=== PATIENT | male | born 1945 | race Hispanic/Latino ===

== ENCOUNTER → 2019-08-07 | Outpatient (CLI) | payer OTHER, MEDICARE ==
--- NOTE | 2019-08-07 12:26 | Diagnostic Imaging Report ---
EXAM: Renal Ultrasound INDICATION: ^CHRONIC KIDNEY DSIEASE STAGE III COMPARISON: None TECHNIQUE: Transverse and longitudinal images of the kidneys and bladder were obtained. FINDINGS: Right Kidney: Length: 10.9 cm Appearance: Normal echogenicity. Collecting system: No hydronephrosis Stones: None Cyst/Mass: Multiple anechoic cysts, the largest of which measures up to 2.4 x 2.4 x 2.1 cm at the lower pole with thin internal septation. The remaining cysts are simple. Left Kidney: Length: 10.5 cm Appearance: Normal echogenicity. Collecting system: No hydronephrosis Stones: Mid and lower pole 4 mm echogenic structures with twinkle artifact. Cyst/Mass: Mid pole simple cysts measure up to 3.7 and 2.1 cm. Bladder: Bilateral ureteral jets visualized. Prevoid volume estimate of 56.2 cc. Postvoid volume estimate of 15.6 cc. Prostate not visualized due to overlying bowel gas. IMPRESSION: Multiple bilateral renal cysts as above. The largest on the right kidney measures 2.4 x 2.4 x 2.1 cm and contains a thin internal septation (Bosniak II). The remaining cysts are simple. 4 mm left midpole and lower pole nonobstructive renal calculi. Signed by: Roe Conti MD on 08/07/2019 12:22 PM
== END ==
LOC: US 10:50
PROVIDERS: ATTEND Internal Medicine Nephrology
DX: N18.3 Chronic kidney disease, stage 3 (moderate) (principal)
CPT/HCPCS: 76770; 76857

== ENCOUNTER → 2021-02-11 | Outpatient (CLI) | payer MEDICARE | LOC: US 09:52 | PROVIDERS: ATTEND Internal Medicine Nephrology | DX: N18.30 Chronic kidney disease, stage 3 unspecified (principal); N28.1 Cyst of kidney, acquired | CPT/HCPCS: 76770; 76857 ==

== ENCOUNTER → 2021-04-03 | Outpatient (CLI) | payer MEDICARE ==
[~2021-04-03] MED LIST: GADOBENATE DIMEGLUMINE 1 ML IV ONE; SODIUM CHLORIDE 0.9% 50ML 50 ML ONE
== END ==
LOC: MRI 08:46
PROVIDERS: ATTEND Internal Medicine Nephrology
DX: N28.89 Other specified disorders of kidney and ureter (principal); N18.30 Chronic kidney disease, stage 3 unspecified; N28.1 Cyst of kidney, acquired
CPT/HCPCS: 74183; A9577

== ENCOUNTER → 2022-04-26 | Outpatient (CLI) | payer MEDICARE ==
[~2022-04-26] MED LIST changes: +ALLOPURINOL100 MG PO; +ARICEPT5 MG PO; +ASPIRIN81 MG PO; +CEFDINIR300 MG PO; +FUROSEMIDE40 MG PO; -GADOBENATE DIMEGLUMINE 1 ML IV ONE; +GLIPIZIDE5 MG PO; +LISINOPRIL-HCT1 EAC2; +NEURONTIN300 MG PO; +OMEPRAZOLE40 MG PO; +SIMVASTATIN20 MG PO; -SODIUM CHLORIDE 0.9% 50ML 50 ML ONE; +VITAMIN D31 GM
[2022-04-26 09:26] LABS: BASOPHILS % 0.5 % (0.0-1.0); EOSINOPHILS # (AUTO) 0.2 (0.0-0.4); HEMATOCRIT 42.8 % (38.2-49.6); HEMOGLOBIN 14.1 g/dL (14.0-18.0); LYMPHOCYTES # (AUTO) 1.6 (1.0-3.2); LYMPHOCYTES % 21.5 % (18.0-39.1); MEAN CORPUSCULAR HEMOGLOBIN 32.3 pg (28-32); MEAN CORPUSCULAR HGB CONC 32.9 g/dL (31-35); MEAN CORPUSCULAR VOLUME 98.2 fL (81-99); MONOCYTES # (AUTO) 0.6 (0.2-0.8); MONOCYTES % 7.4 % (4.4-11.3); NEUTROPHILS # (AUTO) 5.1 (2.1-6.9); NEUTROPHILS % 67.8 % (38.7-80.0); PLATELET COUNT 177 x10e3/uL (140-360); RED BLOOD COUNT 4.36 x10e6/uL (4.3-5.7); RED CELL DISTRIBUTION WIDTH 13.1 % (11.7-14.4)
== END ==
LOC: RAD 09:04 → EDSTATUS 04-28 11:00
PROVIDERS: ATTEND Internal Medicine Gastroenterology
DX: Z01.810 Encounter for preprocedural cardiovascular examination (principal); Z01.812 Encounter for preprocedural laboratory examination; Z86.010 Personal history of colon polyps
CPT/HCPCS: 0223U; 36415; 85025; 93005